=== PATIENT | male | born 2000 | race American Indian/Alaskan Native ===

== ENCOUNTER 2021-11-01 13:43 | Emergency (ER) | payer SELFPAY ==
[2021-11-01] MEDS ORDERED: HYDROcodone/ACETAMINOPHEN 5-325 MG TAB PO ONE (16:43)
[2021-11-01] MEDS ORDERED: IBUPROFEN 800 MG TAB PO ONE (16:43)
--- NOTE | 2021-11-01 16:48 | Emergency Department Report ---
ED General Adult HPI - General Chief complaint: Dental/Oral Stated complaint: ABSCESS Time Seen by Provider: 11/01/21 16:13 Source: patient Mode of arrival: Ambulatory Limitations: No Limitations - History of Present Illness Initial comments: 20-year-old male no significant past medical history reports to the ER with complaints of right upper dental pain with abscess. Patient reports decayed teeth in his right upper dental area. No other acute signs or symptoms reported. Patient denies fever, no pain with swallowing or eating. No airway concerns. Severity scale (0 -10): 5 - Related Data Previous Rx's Medication Instructions Recorded Last Taken Type Acetaminophen/Codeine [Tylenol 1 tab PO Q6H PRN 2 Days #8 tab 11/01/21 Unknown Rx /Codeine # 3 tab] Amoxicillin/K Clav Tab [Augmentin 1 tab PO Q12HR 7 Days #14 tab 11/01/21 Unknown Rx 875 mg] Ibuprofen [Motrin] 600 mg PO Q8H PRN 6 Days #18 tablet 11/01/21 Unknown Rx Allergies Allergy/AdvReac Type Severity Reaction Status Date / Time No Known Allergies Allergy Unverified 11/01/21 14:25 ED Review of Systems ROS: Stated complaint: ABSCESS Other details as noted in HPI Comment: All other systems reviewed and negative ENT: dental pain ED Past Medical Hx - Past Medical History Previous Medical History?: No - Surgical History Past Surgical History?: No - Medications Home Medications: Home Medications Medication Instructions Recorded Confirmed Last Taken Type Acetaminophen/Codeine [Tylenol 1 tab PO Q6H PRN 2 Days #8 tab 11/01/21 Unknown Rx /Codeine # 3 tab] Amoxicillin/K Clav Tab [Augmentin 1 tab PO Q12HR 7 Days #14 tab 11/01/21 Unknown Rx 875 mg] Ibuprofen [Motrin] 600 mg PO Q8H PRN 6 Days #18 tablet 11/01/21 Unknown Rx ED Physical Exam - General Limitations: No Limitations General appearance: alert, in no apparent distress - Head Head exam: Present: atraumatic, normocephalic - Eye Eye exam: Present: normal appearance - ENT ENT exam: Present: mucous membranes moist, other (right upper dental abscess noted near 3rd and 4th tooth - expression done with slight drainage about 1cc) - Neck Neck exam: Present: normal inspection - Respiratory Respiratory exam: Present: normal lung sounds bilaterally. Absent: respiratory distress - Cardiovascular Cardiovascular Exam: Present: regular rate, normal rhythm. Absent: systolic murmur, diastolic murmur, rubs, gallop - GI/Abdominal GI/Abdominal exam: Present: soft, normal bowel sounds - Rectal Rectal exam: Present: deferred - Extremities Exam Extremities exam: Present: normal inspection - Back Exam Back exam: Present: normal inspection - Neurological Exam Neurological exam: Present: alert, oriented X3 - Psychiatric Psychiatric exam: Present: normal affect, normal mood - Skin Skin exam: Present: warm, dry, intact, normal color. Absent: rash ED Course Vital Signs 11/01/21 11/01/21 14:26 17:29 Temperature 97.5 F L 97.8 F Pulse Rate 71 69 Respiratory 20 18 Rate Blood Pressure 131/78 141/78 [Right] O2 Sat by Pulse 99 99 Oximetry ED Medical Decision Making - Medical Decision Making 20-year-old male no significant past medical history reports to the ER with complaints of right upper dental pain with abscess. Patient reports decayed teeth in his right upper dental area. No other acute signs or symptoms r eported. Patient denies fever, no pain with swallowing or eating. No airway concerns. On physical exam patient has right upper dental abscess near the third and fourth tooth. No concern for peritonsillar abscess. Airway intact. Nonlabored breathing. Abscess was expressed with about 1 cc of drainage noted. No further abscesses noted within oral cavity. Patient started on oral antibiotics for dental infection. Patient given dental clinic resources. Patient reports no other acute signs symptoms at this time. Patient agrees with plan of care and verbalized understanding. Patient stable for discharge home. Vital Signs 11/01/21 11/01/21 14:26 17:29 Temperature 97.5 F L 97.8 F Pulse Rate 71 69 Respiratory 20 18 Rate Blood Pressure 131/78 141/78 [Right] O2 Sat by Pulse 99 99 Oximetry Critical care attestation.: If time is entered above; I have spent that time in minutes in the direct care of this critically ill patient, excluding procedure time. ED Disposition Clinical Impression: Dental abscess, Pain, dental Disposition: 01 HOME / SELF CARE / HOMELESS Is pt being admited?: No Condition: Stable Instructions: Dental Abscess, Acute Pain, Adult Prescriptions: Amoxicillin/K Clav Tab [Augmentin 875 mg] 1 tab PO Q12HR 7 Days #14 tab Ibuprofen [Motrin] 600 mg PO Q8H PRN 6 Days #18 tablet PRN Reason: Pain Acetaminophen/Codeine [Tylenol /Codeine # 3 tab] 1 tab PO Q6H PRN 2 Days #8 tab PRN Reason: Pain , Severe (7-10) Referrals: SALEEM WERNER MD [Primary Care Provider] - 3-5 Days
[2021-11-01 17:32] VITALS: BP 141/78
== END 2021-11-01 17:27 | disposition home or self-care (01) ==
LOC: ED 13:43
DX: K04.7 Periapical abscess without sinus (principal); Z79.899 Other long term (current) drug therapy
CPT/HCPCS: 99282